=== PATIENT | male | born 1990 | race Caucasian/White ===

== ENCOUNTER 2016-12-30 19:41 | Emergency (ER) | payer OTHER ==
[2016-12-30 19:58] VITALS: O2SAT 98
[2016-12-30] MEDS ORDERED: SUMAtriptan SUCCINATE INJ 6 MG/0.5 ML VIAL SUBCU ONE (20:14)
--- NOTE | 2016-12-30 20:17 | ED.PDOC ---
History of Present Illness - General Chief Complaint: Headache Stated Complaint: headache Time Seen by Provider: 12/30/16 19:59 Source: patient, RN notes reviewed, Vital Signs reviewed Exam Limitations: no limitations - History of Present Illness Initial Comments: Patient comes in with a several day history of right arm numbness. Then today he developed a right sided headache. No dizziness or lightheadedness. + photophobia. No nausea/vomiting. Denies history of migraines. Admits of marijuana use last night. Timing/Duration: constant - for several days Quality: moderate, pressure Head Injury Location: temporal - right, parietal - right Recent Head Trauma: no recent headache/trauma Improving Factors: nothing Worsening Factors: nothing Associated Symptoms: denies symptoms Allergies/Adverse Reactions: Allergies NO KNOWN ALLERGY Allergy (Verified 12/30/16 19:53) Home Medications: Ambulatory Orders Sumatriptan Succinate [Imitrex] 100 mg PO ONCE #6 tab 12/30/16 Review of Systems - Review of Systems Constitutional: States: malaise. Denies: chills, diaphoresis, fever EENTM: States: no symptoms reported. Denies: blurred vision, double vision Respiratory: States: no symptoms reported. Denies: short of breath Cardiology: States: no symptoms reported. Denies: chest pain Gastrointestinal/Abdominal: States: no symptoms reported. Denies: nausea, vomiting Musculoskeletal: States: no symptoms reported Skin: States: no symptoms reported Neurological: States: see HPI, headache, numbness - right arm Past Medical History (General) - Patient Medical History Hx Seizures: No Hx Stroke: No Hx Dementia: No Hx Asthma: Yes Hx of COPD: No Hx Cardiac Disorders: No Hx Congestive Heart Failure: No Hx Pacemaker: No Hx Hypertension: No Hx Thyroid Disease: No Hx Diabetes: No Hx Gastroesophageal Reflux: No Hx Renal Disease: No Hx Cancer: No Hx of HIV: No Hx Hepatitis C: No Hx MRSA: No Surgical History: cholecystectomy - Vaccination History Hx Tetanus, Diphtheria Vaccination: No Hx Influenza Vaccination: No Hx Pneumococcal Vaccination: No Immunizations Up to Date: No - Social History Hx Tobacco Use: Yes Hx Chewing Tobacco Use: No Hx Alcohol Use: No Hx Substance Use: Yes Hx Substance Use Treatment: No Hx Depression: No - Female History Patient : No Family Medical History - Family History Mother Family History: No Known Living Status: Still Living Hx Cardiac Disease: Yes - angina Hx Family Diabetes: Yes Physical Exam - Physical Exam General Appearance: Alert, Comfortable, No apparent distress, Well Developed, Well Groomed, Well Hydrated, Well Nourished Eyes, Ears, Nose, Throat Exam: PERRL/EOMI, normal ENT inspection, pharynx normal Neck: non-tender, full range of motion, supple, normal inspection, trachea midline Respiratory: chest non-tender Extremity: normal range of motion, non-tender, normal inspection Mental Status: alert, oriented x 3 cost estimating engineer Exam: normal hearing, normal speech, PERRL Coordination/Gait: normal gait Motor/Sensory: no motor deficit, no sensory deficit, no pronator drift Skin Exam: warm/dry, normal color Progress - Progress Progress: 12/30/16 20:58 Patient reports BOTELLO is completely resolved after Imitrex. Discussed CT and X-ray results. Needs follow up for EMG of RUE to further evaluate numbness. Will d/c home with Rx for Imitrex - EKG/XRAY/CT XRAY: c-spine - Straightening, o/w nl CT Ordered: Yes - Head: no acute intracranial abnormality CT Interpretation Call Back: No Departure - Departure Clinical Impression: Paresthesia of right arm Migraine Qualifiers: Migraine type: without aura Status migrainosus presence: without status migrainosus Intractability: not intractable Qualifier Code: (G43.009) Migraine without aura, not intractable, without status migrainosus Time of Disposition: 21:00 Disposition: Discharge to Home or Self Care Condition: Good Departure Forms: ED Discharge - Pt. Copy, Patient Portal Self Enrollment Instructions: DI for Migraine, DI for Numbness/tingling Diet: resume usual diet Activity: increase activity as tolerated Referrals: Bryanna Simmons NP [Nurse Practitioner] - 1-2 Weeks (Needs EMG for paresthesia of RUE) Prescriptions: Sumatriptan Succinate [Imitrex] 100 mg PO ONCE #6 tab Home Medications: Ambulatory Orders Sumatriptan Succinate [Imitrex] 100 mg PO ONCE #6 tab 12/30/16
--- NOTE | 2016-12-30 20:39 | CT ---
PROCEDURE: Head HISTORY: R sided headache with numbness R arm Indication: Same as above Comparison: None Technique: CT of the head was done without intravenous contrast was done in the orthogonal planes. This exam was performed according to our departmental dose-optimization program, which includes automated exposure control, adjustment of the mA and/or KV according to the patient's size and/or use of iterative reconstruction technique. FINDINGS: There is no intracranial hemorrhage, midline shift mass effect or acute focal infarct. If clinical concern exists regarding an acute ischemic/vascular pathology being responsible for patient's symptomatology, an MRI of the brain is more sensitive than the current study, in ruling out such a possibility. There is good patel/white matter differentiation. The ventricular system is normal. The mastoid air cells are unremarkable . The paranasal sinuses are unremarkable . There is no visualization of acute fractures involving the calvarium or the skull base. IMPRESSION: There is no acute intracranial abnormality. Electronically signed by: Last Sierra MD 12/30/2016 8:38 PM CDT
--- NOTE | 2016-12-30 20:49 | RAD ---
EXAM DESCRIPTION: XR CERVICAL SPINE 2 - 3 VIEWS CLINICAL HISTORY: Numbness R arm COMPARISON: None FINDINGS: AP, lateral and open-mouth view of the cervical spine were submitted. The prevertebral soft tissues are within normal limits. There is no acute fracture or subluxation. The cervicothoracic junction is identified and well aligned. The lateral masses of C1 and the odontoid are well aligned. Straightening of the cervical spine could be secondary to patient's positioning versus spasm. IMPRESSION: No acute fracture or subluxation. Straightening of the cervical spine could be secondary to patient's positioning versus spasm. Electronically signed by: Renzo Ureña MD 12/30/2016 8:47 PM CDT
[2016-12-30 21:26] VITALS: BP 132/88; TEMP 98.7
== END 2016-12-30 21:12 | disposition home or self-care (01) ==
LOC: ER 19:41
DX: G43.009 Migraine without aura, not intractable, without status migrainosus (principal); R20.9 Unspecified disturbances of skin sensation; J45.909 Unspecified asthma, uncomplicated; Z87.891 Personal history of nicotine dependence
CPT/HCPCS: 70450; 72040; J3030

== ENCOUNTER 2017-06-10 00:23 | Emergency (ER) | payer OTHER ==
[2017-06-10 00:41] VITALS: BP 115/77; TEMP 98.1; O2SAT 97
--- NOTE | 2017-06-10 00:43 | ED.PDOC ---
History of Present Illness - General Chief Complaint: Dental/Mouth Stated Complaint: tooth abcess, wants abx tx Time Seen by Provider: 06/10/17 00:33 Source: patient, RN notes reviewed, Vital Signs reviewed Exam Limitations: no limitations - History of Present Illness Initial Comments: Patient here with c/o a dental abscess. He would like some antibiotics to take before he gets the tooth pulled. Symptoms started 2 days ago. Timing/Duration: constant Severity: moderate Improving Factors: nothing Worsening Factors: eating Associated Symptoms: denies symptoms Allergies/Adverse Reactions: Allergies NO KNOWN ALLERGY Allergy (Verified 06/10/17 00:41) Home Medications: Ambulatory Orders Amoxicillin [Amoxil] 500 mg PO TID #21 cap 06/10/17 Review of Systems - Review of Systems Constitutional: States: no symptoms reported. Denies: chills, fever EENTM: States: mouth pain Respiratory: States: no symptoms reported Cardiology: States: no symptoms reported Gastrointestinal/Abdominal: States: no symptoms reported Musculoskeletal: States: no symptoms reported Skin: States: no symptoms reported Neurological: States: no symptoms reported All other Systems: No Change from Baseline Past Medical History (General) - Patient Medical History Hx Seizures: No Hx Stroke: No Hx Dementia: No Hx Asthma: Yes Hx of COPD: No Hx Cardiac Disorders: No Hx Congestive Heart Failure: No Hx Pacemaker: No Hx Hypertension: No Hx Thyroid Disease: No Hx Diabetes: No Hx Gastroesophageal Reflux: No Hx Renal Disease: No Hx Cancer: No Hx of HIV: No Hx Hepatitis C: No Hx MRSA: No - Vaccination History Hx Tetanus, Diphtheria Vaccination: Yes Hx Influenza Vaccination: Yes Hx Pneumococcal Vaccination: No - Social History Hx Tobacco Use: Yes Hx Chewing Tobacco Use: No Hx Alcohol Use: No Hx Substance Use: Yes Hx Substance Use Treatment: No Hx Depression: No Feels Threatened In Home Enviroment: No Feels Threatened In a Relationship: No Hx Physical Abuse: No Hx Emotional Abuse: No Hx Suspected Abuse: No - Female History Patient : No Family Medical History - Family History Mother Family History: No Known Living Status: Still Living Hx Cardiac Disease: Yes - angina Hx Family Diabetes: Yes Physical Exam - Physical Exam General Appearance: Alert, Comfortable, No apparent distress, Unkempt, Well Developed, Well Hydrated, Well Nourished Ears, Nose, Throat: other - poor dentition with numerous carries. L upper gum is erythematous, swollen and tender. Neck: full range of motion, supple, lymphadenopathy (L) Respiratory: no respiratory distress Extremity: normal range of motion, normal inspection Neurologic: alert, normal mood/affect, oriented x 3 Skin Exam: normal color, warm/dry Comments: Vital Signs 06/10/17 00:35 Temperature 98.1 F Pulse Rate [ 99 H monitor] Respiratory 18 Rate Blood Pressure 115/77 [Left Arm] O2 Sat by Pulse 97 Oximetry Departure - Departure Clinical Impression: Dental caries, Dental abscess Time of Disposition: 00:45 Disposition: Discharge to Home or Self Care Condition: Good Departure Forms: ED Discharge - Pt. Copy, Patient Portal Self Enrollment Instructions: Tooth Abscess, DI for Tooth Decay Diet: resume usual diet Activity: increase activity as tolerated Prescriptions: Amoxicillin [Amoxil] 500 mg PO TID #21 cap Home Medications: Ambulatory Orders Amoxicillin [Amoxil] 500 mg PO TID #21 cap 06/10/17 Additional Instructions: Follow up with dentist this week for definitive care
[2017-06-10] MEDS ORDERED: AMOXICILLIN 500 MG CAP PO ONE (00:44)
== END 2017-06-10 01:02 | disposition home or self-care (01) ==
LOC: ER 00:23
DX: K04.7 Periapical abscess without sinus (principal); J45.909 Unspecified asthma, uncomplicated; K02.9 Dental caries, unspecified; Z87.891 Personal history of nicotine dependence

== ENCOUNTER 2017-11-13 21:44 | Emergency (ER) | payer OTHER ==
[2017-11-13 22:15] VITALS: O2SAT 96
--- NOTE | 2017-11-13 22:29 | ED.PDOC ---
History of Present Illness - General Chief Complaint: Dental/Mouth Stated Complaint: mouth pain Time Seen by Provider: 11/13/17 22:20 Source: patient Exam Limitations: no limitations - History of Present Illness Initial Comments: Wilson Buenrostro 27 y/o male stated that he has multiple decayed teeth and had been having dental pains for the last 3 days.Called up his dentis advised to get antibiotics first. Timing/Duration: other - see hpi Severity: moderate EENT Location: dental Prearrival Treatment: no prearrival treatment Presenting Symptoms: dental pain Improving Factors: nothing Worsening Factors: eating Associated Symptoms: tooth pain Allergies/Adverse Reactions: Allergies NO KNOWN ALLERGY Allergy (Verified 06/10/17 00:41) Home Medications: Ambulatory Orders Amoxicillin [Amoxil] 500 mg PO TID #21 cap 06/10/17 Clindamycin HCl 300 mg PO BID #20 cap 11/13/17 Gabapentin 300 mg PO BID #20 cap 11/13/17 Review of Systems - Review of Systems Constitutional: States: no symptoms reported EENTM: States: see HPI Respiratory: States: no symptoms reported Cardiology: States: no symptoms reported Gastrointestinal/Abdominal: States: no symptoms reported Genitourinary: States: no symptoms reported All other Systems: Reviewed and Negative, No Change from Baseline Past Medical History (General) - Patient Medical History Hx Seizures: No Hx Stroke: No Hx Dementia: No Hx Asthma: No Hx of COPD: No Hx Cardiac Disorders: No Hx Congestive Heart Failure: No Hx Pacemaker: No Hx Hypertension: No Hx Thyroid Disease: No Hx Diabetes: No Hx Gastroesophageal Reflux: No Hx Renal Disease: No Hx Cancer: No Hx of HIV: No Hx Hepatitis C: No Hx MRSA: No Surgical History: cholecystectomy - Vaccination History Hx Tetanus, Diphtheria Vaccination: Yes Hx Influenza Vaccination: Yes Hx Pneumococcal Vaccination: No - Social History Hx Tobacco Use: Yes Hx Chewing Tobacco Use: No Hx Alcohol Use: No Hx Substance Use: Yes Hx Substance Use Treatment: No Hx Depression: No Hx Physical Abuse: No Hx Emotional Abuse: No Hx Suspected Abuse: No - Female History Patient : No Family Medical History - Family History Mother Family History: No Known Living Status: Still Living Hx Cardiac Disease: Yes - angina Hx Family Diabetes: Yes Physical Exam - Physical Exam General Appearance: Alert, Anxious, No apparent distress Eye Exam: bilateral normal Ear Exam: bilateral ear: auricle normal, canal normal, TM normal Nasal Exam: normal inspection Throat Exam: pharynx normal, dental tenderness - multiple decayed teeth upper incisors and molars Neck: non-tender, full range of motion, supple Cardiovascular/Respiratory: regular rate, rhythm, no M/R/G, normal peripheral pulses Abdominal Exam: non-tender Neurologic: alert, oriented x 3 Skin Exam: normal color, warm/dry Progress - Progress Progress: 11/13/17 22:31 Last Vital Signs Temp 97.0 F L 11/13/17 22:01 Pulse 81 11/13/17 22:01 Resp 22 11/13/17 22:01 BP 154/47 11/13/17 22:01 Pulse Ox 96 11/13/17 22:01 Departure - Departure Clinical Impression: Chronic dental pain, Compound dental caries Time of Disposition: 22:34 Disposition: Discharge to Home or Self Care Condition: Fair Departure Forms: ED Discharge - Pt. Copy, Patient Portal Self Enrollment Instructions: DI for Dental Pain, DI for Tooth Decay Diet: other - SOFT DIET ONLY UNTIL BETTER Prescriptions: Clindamycin HCl 300 mg PO BID #20 cap Gabapentin 300 mg PO BID #20 cap Home Medications: Ambulatory Orders Amoxicillin [Amoxil] 500 mg PO TID #21 cap 06/10/17 Clindamycin HCl 300 mg PO BID #20 cap 11/13/17 Gabapentin 300 mg PO BID #20 cap 11/13/17 Additional Instructions: NEED TO CALL DENTIST 11/15/2017
[2017-11-13] MEDS ORDERED: CLINDAMYCIN HCL CAP 150 MG CAP PO ONE (22:31)
[2017-11-13] MEDS ORDERED: CLINDAMYCIN PHOSPHATE 150 MG/ML VIAL IM ONE (22:32)
[2017-11-13] MEDS ORDERED: HYDROcodone 7.5MG/APAP 325MG 1 EA TAB PO ONE (22:33)
[2017-11-13 22:59] VITALS: BP 158/74; TEMP 97.4
== END 2017-11-13 22:59 | disposition home or self-care (01) ==
LOC: ER 21:44
DX: K02.9 Dental caries, unspecified (principal); Z87.891 Personal history of nicotine dependence

== ENCOUNTER 2018-02-04 19:56 | Emergency (ER) | payer OTHER ==
[2018-02-04] MEDS ORDERED: KETOROLAC TROMETHAMINE INJ 30 MG/ML VIAL IV ONE (21:05)
--- NOTE | 2018-02-04 21:05 | ED.PDOC ---
History of Present Illness - General Chief Complaint: Problem Stated Complaint: voiding frequency, nausea, back pain Time Seen by Provider: 02/04/18 20:57 Source: patient Exam Limitations: no limitations Additional Information: C/O LYUDMILA FLANK PAIN WITH FREQUENT URINATION. SX'S X 4 DAYS. - History of Present Illness Timing/Duration: other - 4 DAYS Severity: moderate Improving Factors: nothing Worsening Factors: nothing Associated Symptoms: nausea/vomiting Allergies/Adverse Reactions: Allergies NO KNOWN ALLERGY Allergy (Verified 06/10/17 00:41) Home Medications: Ambulatory Orders Amoxicillin [Amoxil] 500 mg PO TID #21 cap 06/10/17 Clindamycin HCl 300 mg PO BID #20 cap 11/13/17 Gabapentin 300 mg PO BID #20 cap 11/13/17 Cyclobenzaprine HCl [Flexeril] 10 mg PO TID PRN #15 tab 02/04/18 Indomethacin 50 mg PO TID PRN #14 cap 02/04/18 Review of Systems - Review of Systems Constitutional: Denies: chills, fever EENTM: States: no symptoms reported Respiratory: States: no symptoms reported Cardiology: States: no symptoms reported Gastrointestinal/Abdominal: States: abdominal pain. Denies: nausea, vomiting Genitourinary: States: dysuria, frequency. Denies: discharge, hematuria Musculoskeletal: States: back pain. Denies: neck pain Skin: States: no symptoms reported Neurological: States: no symptoms reported Endocrine: States: no symptoms reported Hematologic/Lymphatic: States: no symptoms reported Past Medical History (General) - Patient Medical History Hx Seizures: Yes - not taking medications Hx Stroke: No Hx Dementia: No Hx Asthma: No Hx of COPD: No Hx Cardiac Disorders: Yes - heart murmur Hx Congestive Heart Failure: No Hx Pacemaker: No Hx Hypertension: No Hx Thyroid Disease: No Hx Diabetes: No Hx Gastroesophageal Reflux: No Hx Renal Disease: Yes - hx stones Hx Cancer: No Hx of HIV: No Hx Hepatitis C: No Hx MRSA: Yes MRSA Source:: Wound Surgical History: cholecystectomy, other - Vaccination History Hx Tetanus, Diphtheria Vaccination: Yes Hx Influenza Vaccination: Yes Hx Pneumococcal Vaccination: No - Social History Hx Tobacco Use: Yes Cigarettes Packs Per Day: 2 Hx Chewing Tobacco Use: No Hx Alcohol Use: No Hx Substance Use: Yes Hx Substance Use Treatment: No Hx Depression: No Hx Physical Abuse: No Hx Emotional Abuse: No Hx Suspected Abuse: No - Female History Patient : No Family Medical History - Family History Mother Family History: No Known Living Status: Still Living Hx Cardiac Disease: Yes - angina Hx Family Diabetes: Yes Physical Exam - Physical Exam General Appearance: Alert, No apparent distress Eye Exam: bilateral normal Ears, Nose, Throat: hearing grossly normal, normal ENT inspection Neck: non-tender, full range of motion, supple Respiratory: lungs clear, normal breath sounds Cardiovascular/Chest: regular rate, rhythm, no murmur Gastrointestinal/Abdominal: normal bowel sounds, non tender, soft, no organomegaly Back Exam: normal inspection, no CVA tenderness, no vertebral tenderness Extremity: normal range of motion, non-tender, normal inspection Neurologic: alert, normal mood/affect Skin Exam: normal color, warm/dry Lymphatic: no adenopathy Progress - Progress Progress: 02/04/18 23:01 FEELS BETTER. WANTS TO LEAVE Departure - Departure Clinical Impression: Lumbosacral pain Time of Disposition: 23:03 Disposition: Discharge to Home or Self Care Condition: Good Departure Forms: ED Discharge - Pt. Copy, Patient Portal Self Enrollment Instructions: Low Back Pain Prescriptions: Cyclobenzaprine HCl [Flexeril] 10 mg PO TID PRN #15 tab PRN Reason: Pain Indomethacin 50 mg PO TID PRN #14 cap PRN Reason: Pain Home Medications: Ambulatory Orders Amoxicillin [Amoxil] 500 mg PO TID #21 cap 06/10/17 Clindamycin HCl 300 mg PO BID #20 cap 11/13/17 Gabapentin 300 mg PO BID #20 cap 11/13/17 Cyclobenzaprine HCl [Flexeril] 10 mg PO TID PRN #15 tab 02/04/18 Indomethacin 50 mg PO TID PRN #14 cap 02/04/18
[2018-02-04 22:48] VITALS: TEMP 97.3
[2018-02-04 23:25] VITALS: BP 98/54; O2SAT 18
== END 2018-02-04 23:24 | disposition home or self-care (01) ==
LOC: ER 19:56
DX: M54.5 Low back pain (principal); R11.2 Nausea with vomiting, unspecified; R01.1 Cardiac murmur, unspecified; Z87.442 Personal history of urinary calculi; F17.210 Nicotine dependence, cigarettes, uncomplicated; R56.9 Unspecified convulsions
CPT/HCPCS: 36415; 80048; 81001; 85025; J1885

== ENCOUNTER 2018-02-06 14:44 | Emergency (ER) | payer OTHER ==
[2018-02-06 14:52] VITALS: TEMP 98.5; O2SAT 100
--- NOTE | 2018-02-06 15:12 | ED.PDOC ---
History of Present Illness - General Chief Complaint: GI Problem Stated Complaint: N/V/D, abdominal discomfort, feels hot Time Seen by Provider: 02/06/18 15:04 Source: patient Exam Limitations: no limitations - History of Present Illness Initial Comments: Wilson Buenrostro 27 y/o male stated had N/V/D the last 2 days.Stated ate pizza before getting sick,no ill contact no recent antibiotics,no fever ,no chills. Timing/Duration: other - see hpi Severity: moderate Improving Factors: nothing Worsening Factors: eating Associated Symptoms: other - see hpi Allergies/Adverse Reactions: Allergies NO KNOWN ALLERGY Allergy (Verified 02/06/18 14:54) Home Medications: Ambulatory Orders Gabapentin 300 mg PO BID #20 cap 11/13/17 Cyclobenzaprine HCl [Flexeril] 10 mg PO TID PRN #15 tab 02/04/18 Indomethacin 50 mg PO TID PRN #14 cap 02/04/18 Review of Systems - Review of Systems Constitutional: States: no symptoms reported EENTM: States: no symptoms reported Respiratory: States: no symptoms reported Cardiology: States: no symptoms reported Gastrointestinal/Abdominal: States: see HPI Genitourinary: States: no symptoms reported All other Systems: Reviewed and Negative, No Change from Baseline Past Medical History (General) - Patient Medical History Hx Seizures: Yes - not taking medications Hx Stroke: No Hx Dementia: No Hx Asthma: No Hx of COPD: No Hx Cardiac Disorders: Yes - heart murmur Hx Congestive Heart Failure: No Hx Pacemaker: No Hx Hypertension: No Hx Thyroid Disease: No Hx Diabetes: No Hx Gastroesophageal Reflux: No Hx Renal Disease: Yes - hx stones Hx Cancer: No Hx of HIV: No Hx Hepatitis C: No Hx MRSA: Yes MRSA Source:: Wound Surgical History: cholecystectomy, other - left wrist -orif - Vaccination History Hx Tetanus, Diphtheria Vaccination: Yes Hx Influenza Vaccination: Yes - 2016 Hx Pneumococcal Vaccination: No - 2014 - Social History Hx Tobacco Use: Yes Hx Chewing Tobacco Use: No Hx Alcohol Use: No Hx Substance Use: Yes Hx Substance Use Treatment: No Hx Depression: No Hx Physical Abuse: No Hx Emotional Abuse: No Hx Suspected Abuse: No - Female History Patient : No Family Medical History - Family History Mother Family History: No Known Living Status: Still Living Hx Cardiac Disease: Yes - angina Hx Family Diabetes: Yes Physical Exam - Physical Exam General Appearance: Alert, Comfortable, No apparent distress Eye Exam: bilateral normal Ears, Nose, Throat: hearing grossly normal, normal ENT inspection, normal pharynx Neck: non-tender, full range of motion, supple Respiratory: chest non-tender, lungs clear, normal breath sounds, no respiratory distress Cardiovascular/Chest: normal peripheral pulses, regular rate, rhythm, no murmur Peripheral Pulses: radial,right: 2+, radial,left: 2+ Gastrointestinal/Abdominal: normal bowel sounds, non tender, soft, no organomegaly Back Exam: no CVA tenderness, no vertebral tenderness Extremity: no pedal edema, no calf tenderness Neurologic: alert, oriented x 3 Skin Exam: normal color, warm/dry Progress - Progress Progress: 02/06/18 15:19 Vital Signs - 8 hr 02/06/18 14:51 Temperature 98.5 F Pulse Rate [ 85 Right Radial] Respiratory 20 Rate Blood Pressure 129/86 [Right Arm] O2 Sat by Pulse 100 Oximetry - Results/Orders Results/Orders: 02/06/18 15:13 IV Care:Saline Lock per Protoc QSHIFT URINE DRUG SCREEN, 7 ASSAY Stat CLOSTRIDIUM DIFFICILE AG/TOXIN Urgent URINALYSIS Stat Laboratory Results - last 24 hr 02/06/18 02/06/18 15:27 15:27 WBC 6.4 RBC 4.93 Hgb 14.3 Hct 42.0 MCV 85.2 MCH 28.9 MCHC 33.9 RDW 14.1 Plt Count 298 MPV 7.0 L Absolute Neuts (auto) 2.80 Absolute Lymphs (auto) 2.20 Absolute Monos (auto) 1.10 H Absolute Eos (auto) 0.30 Absolute Basos (auto) 0.00 Neutrophils % 44.0 Lymphocytes % 34.0 Monocytes % 17.3 H Eosinophils % 4.1 Basophils % 0.6 Sodium 136 Potassium 4.0 Chloride 106 Carbon Dioxide 25 Anion Gap 9.0 L BUN 10 Creatinine 0.70 BUN/Creatinine Ratio 14.3 Random Glucose 89 Serum Osmolality 270.5 L Calcium 8.7 Total Bilirubin 0.4 AST 58 H ALT 113 H Alkaline Phosphatase 69 Serum Total Protein 7.5 Albumin 3.8 Globulin 3.7 H Albumin/Globulin Ratio 1.0 L Lipase 47 Departure - Departure Clinical Impression: Nausea & vomiting Qualifiers: Vomiting type: unspecified Vomiting Intractability: unspecified Qualified Code( s): R11.2 - Nausea with vomiting, unspecified Diarrhea Qualifiers: Diarrhea type: unspecified type Qualified Code(s): R19.7 - Diarrhea, unspecified Time of Disposition: 16:35 Disposition: Discharge to Home or Self Care Condition: Good Departure Forms: ED Discharge - Pt. Copy, Patient Portal Self Enrollment Instructions: Gastroenteritis Diet Diet: other - AVOID GREASY,SPICY,DAIRY,Chicken noodle spoup,may have chicken broth Home Medications: Ambulatory Orders Gabapentin 300 mg PO BID #20 cap 11/13/17 Cyclobenzaprine HCl [Flexeril] 10 mg PO TID PRN #15 tab 02/04/18 Indomethacin 50 mg PO TID PRN #14 cap 02/04/18 Additional Instructions: Follow up with primary Md in AM 07 Feb 2018;May take over the counter Imodium - AD as directed on package for diarrhea
[2018-02-06] MEDS ORDERED: DICYCLOMINE HCL INJ 20 MG/2 ML AMP IM ONE (15:13)
[2018-02-06] MEDS ORDERED: PROMETHAZINE HCL INJ 25 MG/ML VIAL IM ONE (15:13)
[2018-02-06] MEDS ORDERED: LACTATED RINGERS 1,000 ML IVS ONE (15:14)
[2018-02-06 17:54] VITALS: BP 124/77
== END 2018-02-06 16:55 | disposition home or self-care (01) ==
LOC: ER 14:44
DX: R11.2 Nausea with vomiting, unspecified (principal); R19.7 Diarrhea, unspecified; R56.9 Unspecified convulsions; R01.1 Cardiac murmur, unspecified; Z87.891 Personal history of nicotine dependence
CPT/HCPCS: 36415; 80053; 83690; 85025; J0500; J2550; J7120

== ENCOUNTER 2018-06-16 17:09 | Emergency (ER) | payer OTHER ==
[2018-06-16 17:23] VITALS: BP 105/70; TEMP 97.9; O2SAT 99
--- NOTE | 2018-06-16 17:41 | RAD ---
EXAM DESCRIPTION: Tibia/Fibula,Right CLINICAL HISTORY: fell of pporch COMPARISON: None FINDINGS: 2 view(s) submitted. No fracture or dislocation is identified. Bone marrow attenuation is unremarkable. No radiopaque foreign body is identified. IMPRESSION: No acute fracture or dislocation. Electronically signed by: Tobin Reddy 06/16/2018 5:39 PM CDT
--- NOTE | 2018-06-16 17:42 | RAD ---
Right ankle three view on 06/16/2018 Clinical indications: Ankle pain after fell off porch COMPARISON: None FINDINGS: The ankle mortise is intact. There are no fractures. Visualized joints are well aligned. No bony abnormality is noted. IMPRESSION: No acute bony abnormality. Electronically signed by: Inderjit Whitley 06/16/2018 5:41 PM CDT
--- NOTE | 2018-06-16 17:49 | ED.PDOC ---
History of Present Illness - General Chief Complaint: Lower Extremity Injury Stated Complaint: R ankle/foot injury Time Seen by Provider: 06/16/18 17:24 Source: patient Exam Limitations: no limitations - History of Present Illness Initial Comments: the patient is 27-year-old male presenting to emergency room after having twisted his ankle while trying to step off a porch. He has pain in the ankle laterally. There is no anterior significant displacement with stress testing ankle. There is no deformity other than generalized swelling on that side of the ankle. There is already some mild bruising. He does have some mild proximal tibia discomfort to palpation as well. He is neurovascularly intact. Capillary refills within normal limits. No other injuries. Timing/Duration: momentarily Severity: moderate Improving Factors: immobilization Worsening Factors: movement Associated Symptoms: denies symptoms Allergies/Adverse Reactions: Allergies NO KNOWN ALLERGY Allergy (Verified 06/16/18 17:37) Home Medications: Ambulatory Orders Gabapentin 300 mg PO BID #20 cap 11/13/17 Cyclobenzaprine HCl [Flexeril] 10 mg PO TID PRN #15 tab 02/04/18 Indomethacin 50 mg PO TID PRN #14 cap 02/04/18 Review of Systems - Review of Systems Constitutional: States: no symptoms reported EENTM: States: no symptoms reported Respiratory: States: no symptoms reported Cardiology: States: no symptoms reported Gastrointestinal/Abdominal: States: no symptoms reported Genitourinary: States: no symptoms reported Musculoskeletal: States: see HPI Skin: States: no symptoms reported Neurological: States: no symptoms reported All other Systems: No Change from Baseline Past Medical History (General) - Patient Medical History Hx Seizures: Yes - not taking medications Hx Stroke: No Hx Dementia: No Hx Asthma: No Hx of COPD: No Hx Cardiac Disorders: Yes - heart murmur Hx Congestive Heart Failure: No Hx Pacemaker: No Hx Hypertension: No Hx Thyroid Disease: No Hx Diabetes: No Hx Gastroesophageal Reflux: No Hx Renal Disease: Yes - hx stones Hx Cancer: No Hx of HIV: No Hx Hepatitis C: No Hx MRSA: Yes MRSA Source:: Wound Surgical History: cholecystectomy, other - Vaccination History Hx Tetanus, Diphtheria Vaccination: Yes Hx Influenza Vaccination: Yes - 2016 Hx Pneumococcal Vaccination: No - 2014 - Social History Hx Tobacco Use: Yes Hx Chewing Tobacco Use: No Hx Alcohol Use: No Hx Substance Use: Yes Hx Substance Use Treatment: No Hx Depression: No Hx Physical Abuse: No Hx Emotional Abuse: No Hx Suspected Abuse: No - Female History Patient : No Family Medical History - Family History Mother Family History: No Known Living Status: Still Living Hx Cardiac Disease: Yes - angina Hx Family Diabetes: Yes Physical Exam - Physical Exam General Appearance: Alert, Comfortable, No apparent distress Eye Exam: bilateral normal Ears, Nose, Throat: hearing grossly normal, normal pharynx Neck: full range of motion Respiratory: no respiratory distress, no accessory muscle use Cardiovascular/Chest: normal peripheral pulses, no edema Peripheral Pulses: dorsalis pedis,right: 2+, dorsalis pedis,left: 2+, posterior tibialis,right: 2+, posterior tibialis,left: 2+ Rectal Exam: deferred Extremity: no calf tenderness, normal capillary refill, swelling, other - see history of present illness 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 He does need to ambulate carefully. He has deferred a walking boot at this time. He should expect to have pain for the next 3 weeks or so. Dpbl-oym-lhmiuec anti- inflammatories such as Advil or Aleve may help. X-rays of the ankle and lower leg show no evidence of any fracture or dislocation at this time. ER warnings were given. Departure - Departure Clinical Impression: Right ankle sprain Qualifiers: Encounter type: initial encounter Involved ligament of ankle: unspecified ligament Qualified Code(s): S93.401A - Sprain of unspecified ligament of right ankle, initial encounter Disposition: Discharge to Home or Self Care Condition: Fair Departure Forms: ED Discharge - Pt. Copy, Patient Portal Self Enrollment Instructions: Ankle Sprain (DC) Diet: regular diet Activity: increase activity as tolerated Home Medications: Ambulatory Orders Gabapentin 300 mg PO BID #20 cap 11/13/17 Cyclobenzaprine HCl [Flexeril] 10 mg PO TID PRN #15 tab 02/04/18 Indomethacin 50 mg PO TID PRN #14 cap 02/04/18 Additional Instructions: the patient's a 27-year-old male presenting to emergency room secondary to a significant right lateral ankle sprain. He does need to ambulate carefully. He has deferred a walking boot at this time. He should expect to have pain for the next 3 weeks or so. Ffop-zvo-rtswhjc anti- inflammatories such as Advil or Aleve may help. X-rays of the ankle and lower leg show no evidence of any fracture or dislocation at this time. ER warnings were given.
[2018-06-16] MEDS ORDERED: ACETAMINOPHEN-CAFF-BUTALBITAL 1 EA TAB PO ONE (17:52)
== END 2018-06-16 17:56 | disposition home or self-care (01) ==
LOC: ER 17:09
DX: S93.401A Sprain of unspecified ligament of right ankle, initial encounter (principal); Z87.891 Personal history of nicotine dependence; X50.9XXA Other and unspecified overexertion or strenuous movements or postures, initial encounter; Y92.89 Other specified places as the place of occurrence of the external cause

== ENCOUNTER 2018-12-27 16:59 | Emergency (ER) | payer OTHER ==
[2018-12-27] MEDS ORDERED: LIDOCAINE HCL 2% (MOUTH-THROAT) 15 ML UD PO ONE (17:00)
[2018-12-27 17:17] VITALS: O2SAT 99
--- NOTE | 2018-12-27 18:06 | ED.PDOC ---
History of Present Illness - General Chief Complaint: Drug or Alcohol Abuse Stated Complaint: Shoved a bag of meth in rectum Time Seen by Provider: 12/27/18 17:03 Source: patient Exam Limitations: no limitations - History of Present Illness Initial Comments: the patient is a 20-year-old male presenting to emergency room secondary to being arrested by the police and in order to hide his methamphetamine he shoved the bag up his rectum. This occurred just prior to arrival. no evidence clinically of any rupture. The patient was given a chance to defecate the back himself but was unable to. Due to this an attempt was made digitally to retrieve the bag. While it could be felt it could not be extracted. due to this, a rectal speculum was used along with long forceps to grab the bag and removed it. The bag appears to be intact containing a small amount of white substance. Timing/Duration: other - just prior to arrival. Severity: mild - asymptomatic Improving Factors: nothing Worsening Factors: nothing Associated Symptoms: denies symptoms Allergies/Adverse Reactions: Allergies NO KNOWN ALLERGY Allergy (Verified 12/27/18 17:06) Home Medications: Ambulatory Orders Divalproex Sodium [Depakote Tab] 250 mg PO BID 12/27/18 Review of Systems - Review of Systems Constitutional: States: no symptoms reported EENTM: States: no symptoms reported Respiratory: States: no symptoms reported Cardiology: States: no symptoms reported Gastrointestinal/Abdominal: States: no symptoms reported Genitourinary: States: no symptoms reported Musculoskeletal: States: no symptoms reported Skin: States: see HPI - numerous tattoos Neurological: States: anxiety Endocrine: States: no symptoms reported All other Systems: No Change from Baseline Past Medical History (General) - Patient Medical History Hx Seizures: Yes Hx Stroke: No Hx Dementia: No Hx Asthma: No Hx of COPD: No Hx Cardiac Disorders: Yes - heart murmur Hx Congestive Heart Failure: No Hx Pacemaker: No Hx Hypertension: No Hx Thyroid Disease: No Hx Diabetes: Yes Hx Gastroesophageal Reflux: No Hx Renal Disease: Yes - hx stones Hx Cancer: No Hx of HIV: No Hx Hepatitis C: No Hx MRSA: Yes MRSA Source:: Wound Surgical History: cholecystectomy, other - Vaccination History Hx Tetanus, Diphtheria Vaccination: Yes Hx Influenza Vaccination: Yes - 2016 Hx Pneumococcal Vaccination: No - 2014 - Social History Hx Tobacco Use: Yes Hx Chewing Tobacco Use: No Hx Alcohol Use: No Hx Substance Use: Yes - Meth, marijuana Hx Substance Use Treatment: No Hx Depression: No Hx Physical Abuse: No Hx Emotional Abuse: No Hx Suspected Abuse: No - Female History Patient : No Family Medical History - Family History Mother Family History: No Known Living Status: Still Living Hx Cardiac Disease: Yes - angina Hx Family Diabetes: Yes Physical Exam - Physical Exam General Appearance: Alert, Anxious, No apparent distress Eye Exam: bilateral normal Ears, Nose, Throat: hearing grossly normal, normal ENT inspection - very poor dentition Neck: full range of motion, supple Respiratory: no respiratory distress, no accessory muscle use Cardiovascular/Chest: no edema, other - regular rate Peripheral Pulses: radial,right: 2+, radial,left: 2+ Gastrointestinal/Abdominal: non tender, soft Rectal Exam: other - rectal exam shows a few old thrombosed hemorrhoids. 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 No clinical evidence of bag rupture. Substanc is likely methamphetamine but I'm not entirely sure. He is not tachycardic diaphoretic or markedly hypertensive. He reports that he placed only one bag up there. the patient has been monitored for an additional hour without any significant change in clinical status. He is otherwise asymptomatic at this time. He will be released to police custody. 12/27/18 18:10 Departure - Departure Clinical Impression: Substance abuse Foreign body anus/rectum Qualifiers: Encounter type: initial encounter Qualified Code(s): T18.5XXA - Foreign body in anus and rectum, initial encounter Disposition: Discharge to Home or Self Care Condition: Fair Departure Forms: ED Discharge - Pt. Copy, Patient Portal Self Enrollment Diet: regular diet Activity: increase activity as tolerated Home Medications: Ambulatory Orders Divalproex Sodium [Depakote Tab] 250 mg PO BID 12/27/18 Additional Instructions: the patient's 28-year-old male brought in police custody after having shoved a baggy of drugs up his rectum in order to hide it from the police. No clinical evidence of bag rupture. Substanc is likely methamphetamine but I'm not entirely sure. He is not tachycardic diaphoretic or markedly hypertensive. He reports that he placed only one bag up there. the patient has been monitored for an additional hour without any significant change in clinical status. He is otherwise asymptomatic at this time. He will be released to police custody.
[2018-12-27] MEDS ORDERED: DIVALPROEX SODIUM 250 MG TAB PO ONE (18:36)
[2018-12-27 18:40] VITALS: BP 142/88; TEMP 96
== END 2018-12-27 18:42 | disposition home or self-care (01) ==
LOC: ER 16:59
DX: T18.5XXA Foreign body in anus and rectum, initial encounter (principal); F19.10 Other psychoactive substance abuse, uncomplicated; K64.5 Perianal venous thrombosis; R56.9 Unspecified convulsions; R01.1 Cardiac murmur, unspecified; E11.9 Type 2 diabetes mellitus without complications; Z79.899 Other long term (current) drug therapy; Z87.891 Personal history of nicotine dependence

== ENCOUNTER 2020-02-16 | Emergency (ER) | payer OTHER | END 2020-02-16 21:50 | disposition left against medical advice (07) ==

== ENCOUNTER 2020-05-21 17:49 | Emergency (ER) | payer OTHER ==
--- NOTE | 2020-05-21 17:54 | ED.PDOC ---
History of Present Illness - General Time Seen by Provider: 05/21/20 17:50 Source: patient - History of Present Illness Initial Comments: 29 yo male with PMH of meth abuse, marijuana abuse, seizure disorder, dental caries who presents with cc of dental pain. Onset 1 week ago with gradual worsening, located to maxillary front teeth and canine teeth, constant, "like someone trying to rip them out", 05/06 severity, worse with eating/chewing, tried ibuprofen 400 mg 4 hours ago with little relief. He reports history of severe teeth decay and states he is scheduled to have his teeth removed on 05/27 in [place]. He does report some scant puslike drainage from the lateral incisors. He states that the pain is beginning to radiate up his jaw into both of his ears. Denies any fevers, chills, sore throat, chest pain, dyspnea, abdominal pain, other systemic symptoms. Does report chronic dry cough. Does admit to illicit substance abuse with smoking marijuana. Allergies/Adverse Reactions: Allergies NO KNOWN ALLERGY Allergy (Verified 12/31/19 16:52) Home Medications: Ambulatory Orders Divalproex Sodium [Depakote Tab] 250 mg PO BID 12/27/18 Albuterol Inhaler [Ventolin Hfa Inhaler] 2 - 4 puff INH Q4H PRN #1 inh 12/31/19 Benzonatate Perles [Tessalon Perles] 200 mg PO Q6H PRN #20 cap 12/31/19 Ondansetron Odt [Zofran ODT] 4 - 8 mg PO Q6HR PRN #12 tab 12/31/19 Amoxicillin & Pot Clavulanate [Augmentin Tab] 875 mg PO BID 7 Days #14 tab 05/21/20 Tramadol HCl 50 mg PO Q6H PRN 7 Days #10 tab 05/21/20 Review of Systems - Review of Systems Review of Systems: 05/21/20 18:06 as per HPI All other Systems: Reviewed and Negative Past Medical History (General) - Patient Medical History Hx Seizures: Yes Hx Stroke: No Hx Dementia: No Hx Asthma: No Hx of COPD: No Hx Cardiac Disorders: Yes - Irregular HR Hx Congestive Heart Failure: No Hx Pacemaker: No Hx Hypertension: No Hx Thyroid Disease: No Hx Diabetes: No Hx Gastroesophageal Reflux: No Hx Renal Disease: Yes - hx stones Hx Cancer: No Hx of HIV: No Hx Hepatitis C: No Hx MRSA: Yes MRSA Source:: Wound - Vaccination History Hx Tetanus, Diphtheria Vaccination: No Hx Influenza Vaccination: Yes Hx Pneumococcal Vaccination: No - Social History Hx Tobacco Use: Yes Hx Chewing Tobacco Use: No Hx Alcohol Use: No Hx Substance Use: Yes - Marijuana Hx Substance Use Treatment: No Hx Depression: No Hx Physical Abuse: No Hx Emotional Abuse: No Hx Suspected Abuse: No - Female History Patient : No Family Medical History - Family History Mother Family History: No Known Living Status: Still Living Hx Cardiac Disease: Yes - angina Hx Family Diabetes: Yes Physical Exam - Physical Exam General Appearance: Alert, Comfortable, No apparent distress Eye Exam: bilateral normal Ears, Nose, Throat: other - Missing many teeth. To the maxillary gumline there is severe teeth decay involving bilateral canines, lateral incisors, incisors. There is some redness and mild swelling to the maxillary gumline without evidence of focal abscess or drainage. Neck: non-tender, full range of motion, supple, normal inspection Respiratory: lungs clear, normal breath sounds, no respiratory distress, no accessory muscle use Cardiovascular/Chest: normal peripheral pulses, regular rate, rhythm, no edema, no JVD, no murmur Peripheral Pulses: radial,right: 2+, radial,left: 2+ Gastrointestinal/Abdominal: non tender, soft Extremity: normal range of motion, non-tender, normal inspection Neurologic: no motor/sensory deficits, alert, oriented x 3 Skin Exam: normal color Progress - Progress Progress: 05/21/20 18:07 Acute dental pain -Due to severe dental caries, tooth hypersensitivity. Suspect also possibly maxillary tooth abscess given reported drainage. Discussed with patient that he will need to quit smoking and follow-up with the dentist for definitive treatment with dental extraction of affected teeth. Discussed for now, we will give him tramadol and Augmentin in the ED and sent home with prescriptions for the same with the understanding of the above. -Discharged home in good condition, return warnings discussed Sridhar Mercedes MD Billing #[id number] Departure - Departure Clinical Impression: Dentalgia, Compound dental caries, Drug abuse, Dental abscess Time of Disposition: 18:10 Disposition: Discharge to Home or Self Care Condition: Good Instructions: Dental Pain (DC) Diet: other - Soft mechanical diet Activity: increase activity as tolerated Prescriptions: Amoxicillin & Pot Clavulanate [Augmentin Tab] 875 mg PO BID 7 Days #14 tab Tramadol HCl 50 mg PO Q6H PRN 7 Days #10 tab PRN Reason: Pain Home Medications: Ambulatory Orders Divalproex Sodium [Depakote Tab] 250 mg PO BID 12/27/18 Albuterol Inhaler [Ventolin Hfa Inhaler] 2 - 4 puff INH Q4H PRN #1 inh 12/31/19 Benzonatate Perles [Tessalon Perles] 200 mg PO Q6H PRN #20 cap 12/31/19 Ondansetron Odt [Zofran ODT] 4 - 8 mg PO Q6HR PRN #12 tab 12/31/19 Amoxicillin & Pot Clavulanate [Augmentin Tab] 875 mg PO BID 7 Days #14 tab 05/21/20 Tramadol HCl 50 mg PO Q6H PRN 7 Days #10 tab 05/21/20 Additional Instructions: I strongly advised that you quit smoking and using illicit substances does not want any worsening your dental decay and acute pain as well as put you at risk for heart disease, cancer, chronic lung disease, fatal cardiac arrhythmias, etc. Take antibiotics as directed and finish the full course even if well. Continue to use pzlb-ydj-qnwjrty medications for pain control such as topical Orajel to the affected teeth, Tylenol 650 mg every 6 hours as needed, ibuprofen 600 mg every 6 hours as needed, etc. You may take the tramadol as directed for breakthrough pain. Do not drive or operate heavy machinery while taking this medication as it may make you drowsy. You will need to follow-up with your dentist as scheduled next week for definitive treatment of dental pain with extraction of the affected teeth.
[2020-05-21] MEDS: traMADol HCL 50 MG TAB PO ONE (18:09)
[2020-05-21] MEDS: AMOXICILLIN & POT CLAVULANATE 875 MG TAB PO ONE (18:09)
[2020-05-21 18:19] VITALS: TEMP 98.9; O2SAT 97
[2020-05-21 18:20] VITALS: BP 147/92
== END 2020-05-21 18:23 | disposition home or self-care (01) ==
LOC: ER 17:49
DX: K04.7 Periapical abscess without sinus (principal); K02.9 Dental caries, unspecified; K00.0 Anodontia; F12.90 Cannabis use, unspecified, uncomplicated; R05 Cough; R56.9 Unspecified convulsions; F17.200 Nicotine dependence, unspecified, uncomplicated; Z79.899 Other long term (current) drug therapy

== ENCOUNTER 2020-09-15 16:38 | Emergency (ER) | payer OTHER ==
[2020-09-15] MEDS ORDERED: DIVALPROEX SODIUM ER 250 MG TAB PO ONE (17:14)
--- NOTE | 2020-09-15 17:41 | RAD ---
EXAM DESCRIPTION: Wrist,Right 3 Views CLINICAL HISTORY: 30 years Male pain after seizure COMPARISON: None TECHNIQUE: AP, lateral and oblique views of the right wrist are obtained. FINDINGS: OSSEOUS: There is no evidence of acute fracture or osteolytic/osteoblastic lesions. The joint spaces are preserved. No evidence of subluxation or dislocation. There is no evidence of degenerative osteophytosis or sclerosis. There is no evidence of marginal erosive changes to suggest an inflammatory arthritis. SOFT TISSUE: There is no significant soft tissue swelling or mass. No evidence of significant soft tissue calcifications. No radiopaque foreign bodies. IMPRESSION: No acute osseous abnormalities. Remainder of findings as described above. Electronically signed by: Yola Morales MD 09/15/2020 5:40 PM [employer]
--- NOTE | 2020-09-15 18:03 | ED.PDOC ---
History of Present Illness - General Chief Complaint: Neuro Symptoms/Deficits Stated Complaint: seizure; out of med Time Seen by Provider: 09/15/20 16:48 Source: patient Exam Limitations: no limitations - History of Present Illness Initial Comments: The patient is a 30-year-old male with epilepsy. The patient apparently had a seizure in which he fell and hit his head and injured his right wrist. This was witnessed. He is alert and oriented currently. There is no palpable or visible deformity. No acute neurological changes. The patient apparently ran out of his Depakote. He is not on a blood thinner. He is neurovascularly preserved. Timing/Duration: momentarily Severity: moderate Improving Factors: immobilization Worsening Factors: movement Associated Symptoms: denies symptoms Allergies/Adverse Reactions: Allergies NO KNOWN ALLERGY Allergy (Verified 12/31/19 16:52) Home Medications: Ambulatory Orders Divalproex Sodium [Depakote Tab] 250 mg PO BID 12/27/18 Divalproex Sodium ER [Depakote ER] 1 tablet PO BID #60 tab 09/15/20 Review of Systems - Review of Systems Constitutional: States: malaise EENTM: States: no symptoms reported Respiratory: States: no symptoms reported Cardiology: States: no symptoms reported Gastrointestinal/Abdominal: States: no symptoms reported Genitourinary: States: no symptoms reported Musculoskeletal: States: see HPI Skin: States: no symptoms reported Neurological: States: see HPI Endocrine: States: no symptoms reported All other Systems: No Change from Baseline Past Medical History (General) - Patient Medical History Hx Seizures: Yes Hx Stroke: No Hx Dementia: No Hx Asthma: No Hx of COPD: No Hx Cardiac Disorders: Yes - Irregular HR Hx Congestive Heart Failure: No Hx Pacemaker: No Hx Hypertension: No Hx Thyroid Disease: No Hx Diabetes: No Hx Gastroesophageal Reflux: No Hx Renal Disease: Yes - hx stones Hx Cancer: No Hx of HIV: No Hx Hepatitis C: No Hx MRSA: Yes MRSA Source:: Wound - Vaccination History Hx Tetanus, Diphtheria Vaccination: No Hx Influenza Vaccination: Yes Hx Pneumococcal Vaccination: No - Social History Hx Tobacco Use: Yes Hx Chewing Tobacco Use: No Hx Alcohol Use: No Hx Substance Use: Yes - Marijuana Hx Substance Use Treatment: No Hx Depression: No Hx Physical Abuse: No Hx Emotional Abuse: No Hx Suspected Abuse: No - Female History Patient : No Family Medical History - Family History Mother Family History: No Known Living Status: Still Living Hx Cardiac Disease: Yes - angina Hx Family Diabetes: Yes Physical Exam - Physical Exam General Appearance: Alert, No apparent distress Eye Exam: bilateral normal Ears, Nose, Throat: hearing grossly normal, normal ENT inspection, normal pharynx Neck: non-tender, full range of motion, supple Respiratory: no respiratory distress, no accessory muscle use Cardiovascular/Chest: normal peripheral pulses, no edema, other - Regular rate Peripheral Pulses: radial,right: 2+, radial,left: 2+ Gastrointestinal/Abdominal: non tender, soft Rectal Exam: deferred Back Exam: no CVA tenderness, no vertebral tenderness Extremity: normal range of motion, no calf tenderness, normal capillary refill, other - Patient does report some mild discomfort in his right wrist with movement. No crepitus. No deformity. 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 X-ray of the wrist is negative for any acute pathology. He simply needs to do range of motion exercises for this and take some Motrin. He can wrap it with an Aman wrap if he wishes. I will go ahead and write him for a couple of weeks of his Depakote. He needs to follow-up with his primary care doctor for more extended prescription of this. No focal neurological changes. ER warnings are given. renetta alas [phone] - Results/Orders Results/Orders: X-ray of the right wrist shows no evidence of any fracture or dislocation. Departure - Departure Clinical Impression: Right wrist sprain Qualifiers: Encounter type: initial encounter Qualified Code(s): S63.501A - Unspecified sprain of right wrist, initial encounter Epilepsy Qualifiers: Epilepsy type: unspecified Intractability: intractable Status epilepticus: without status epilepticus Qualified Code(s): G40.919 - Epilepsy, unspecified, intractable, without status epilepticus Disposition: Discharge to Home or Self Care Condition: Fair Departure Forms: ED Discharge - Pt. Copy, Patient Portal Self Enrollment Instructions: Wrist Sprain (DC) Diet: regular diet Activity: increase activity as tolerated Referrals: Bryanna Simmons NP [Primary Care Provider] - 1-2 Weeks Prescriptions: Divalproex Sodium ER [Depakote ER] 1 tablet PO BID #60 tab Home Medications: Ambulatory Orders Divalproex Sodium [Depakote Tab] 250 mg PO BID 12/27/18 Divalproex Sodium ER [Depakote ER] 1 tablet PO BID #60 tab 09/15/20 Additional Instructions: The patient is a 30-year-old male presented to emergency room secondary to mild right wrist sprain that he sustained due to a seizure activity from running out of his Depakote. X-ray of the wrist is negative for any acute pathology. He simply needs to do range of motion exercises for this and take some Motrin. He can wrap it with an Aman wrap if he wishes. I will go ahead and write him for a couple of weeks of his Depakote. He needs to follow-up with his primary care doctor for more extended prescription of this. No focal neurological changes. ER warnings are given.
[2020-09-15 18:17] VITALS: BP 141/89; TEMP 98.5; O2SAT 98
== END 2020-09-15 18:17 | disposition home or self-care (01) ==
LOC: ER 16:38
DX: G40.909 Epilepsy, unspecified, not intractable, without status epilepticus (principal); S63.501A Unspecified sprain of right wrist, initial encounter; Z79.899 Other long term (current) drug therapy; Z91.14 Patient's other noncompliance with medication regimen; Z87.891 Personal history of nicotine dependence; W18.30XA Fall on same level, unspecified, initial encounter; Y92.9 Unspecified place or not applicable

== ENCOUNTER 2020-09-16 20:45 | Emergency (ER) | payer OTHER ==
[2020-09-16] MEDS ORDERED: SODIUM CHLORIDE 0.9% (FLUSH) 10 ML SYG IV PRN (20:46)
[2020-09-16] MEDS ORDERED: SODIUM CHLORIDE 0.9% 1000ML 1,000 ML IVS ONE (20:57)
--- NOTE | 2020-09-16 21:02 | ED.PDOC ---
History of Present Illness - General Time Seen by Provider: 09/16/20 20:46 Source: patient, EMS - History of Present Illness Initial Comments: Patient seen upon ED arrival at 2047. 30-year-old male with past medical history of seizure disorder, marijuana abuse, meth abuse who is brought in by EMS from home for chief complaint of seizures. EMS reports that the family stated that the patient has had 3 seizures today, 2 of which were in the last 1 hour. The seizures were described as lasting around 1 minute, one of the more recent seizures was a generalized tonic-clonic seizure and the other was of the absence variety. The patient is awake and alert and conversive upon arrival but he states he is unable to recall the seizure events. He reports he has had seizures since he was a kid. Reportedly he was seen yesterday in the ED for seizures and was prescribed Depakote 250 mg twice daily. He reports he took his first dose this morning. Patient complains additionally that he has been sick for the past 1 week with frequent cough productive for mucus and occasionally blood-streaked sputum. He additionally reports intermittent subjective fevers and chills, headaches, body aches. Reports also decreased appetite and nausea with a few episodes of nonbloody nonbilious emesis today. Denies any sore throat, abdominal pain, diarrhea. He has not recently been tested for COVID-19. He does not have a regular doctor or a neurologist currently. It has been a while since he has been on seizure medications. Reports he was previously taking BuSpar. He does admit to smoking marijuana and meth frequently. Last marijuana use was today and last meth use was 3 days ago per patient. Denies any IV drug abuse. Allergies/Adverse Reactions: Allergies NO KNOWN ALLERGY Allergy (Verified 09/16/20 21:03) Home Medications: Ambulatory Orders Divalproex Sodium [Depakote Tab] 250 mg PO BID 09/16/20 Review of Systems - Review of Systems Review of Systems: 09/16/20 21:02 as per HPI All other Systems: Reviewed and Negative Past Medical History (General) - Patient Medical History Hx Seizures: Yes Hx Stroke: No Hx Dementia: No Hx Asthma: No Hx of COPD: No Hx Cardiac Disorders: Yes - Irregular HR Hx Congestive Heart Failure: No Hx Pacemaker: No Hx Hypertension: No Hx Thyroid Disease: No Hx Diabetes: No Hx Gastroesophageal Reflux: No Hx Renal Disease: Yes - hx stones Hx Cancer: No Hx of HIV: No Hx Hepatitis C: No Hx MRSA: Yes MRSA Source:: Wound - Vaccination History Hx Tetanus, Diphtheria Vaccination: No Hx Influenza Vaccination: Yes Hx Pneumococcal Vaccination: No - Social History Hx Tobacco Use: Yes Hx Chewing Tobacco Use: No Hx Alcohol Use: No Hx Substance Use: Yes - Marijuana Hx Substance Use Treatment: No Hx Depression: No Hx Physical Abuse: No Hx Emotional Abuse: No Hx Suspected Abuse: No - Female History Patient : No Family Medical History - Family History Mother Family History: No Known Living Status: Still Living Hx Cardiac Disease: Yes - angina Hx Family Diabetes: Yes Physical Exam - Physical Exam General Appearance: Alert, Comfortable, No apparent distress, Other - appears tired Eye Exam: bilateral normal Ears, Nose, Throat: hearing grossly normal, normal ENT inspection, pharyngeal erythema Neck: non-tender, full range of motion, supple, normal inspection Respiratory: chest non-tender, lungs clear, normal breath sounds, no respiratory distress, no accessory muscle use Cardiovascular/Chest: normal peripheral pulses, regular rate, rhythm, no edema, no gallop, no JVD, no murmur Peripheral Pulses: radial,right: 2+, radial,left: 2+ Gastrointestinal/Abdominal: non tender, soft, no organomegaly Back Exam: normal inspection, no CVA tenderness, no vertebral tenderness Extremity: normal range of motion, non-tender, normal inspection, no pedal e concetta, no calf tenderness, normal capillary refill Neurologic: aircraft mechanic structures II-XII nml as tested, no motor/sensory deficits, alert, normal mood/affect, oriented x 3 Skin Exam: normal color, warm/dry Progress - Progress Progress: 09/16/20 21:03 Seizure-like activity -Witnessed by family but not by EMS or ED staff yet. Patient has had GCS 15 since EMS arrival at home without any further seizure activity. -Consider-primary seizure disorder, drug abuse, acute illness, COVID-19, influenza, pneumonia, gastroenteritis, colitis, pancreatitis, rhabdomyolysis, other infections, electrolyte derangement, other -Patient with normal stable vitals upon arrival. EMS did report D stick of 66 in route, will recheck. Patient has no reported history of diabetes and takes no antiglycemic drugs. -Obtain stat seizure work-up, drug panel, rapid Covid and flu testing, rapid strep, UA, Depakote level -Place peripheral IV, 1 L normal saline bolus, seizure precautions 09/16/20 23:43 -Patient has remained stable in the ED, vitals normal, no recurrent seizure-like activity noted. Lab work is largely unremarkable. His Depakote level is in the subtherapeutic range as expected since he was just restarted this morning. Rapid strep, COVID-19, and flu testing are negative -Spoke with the patient's [id number] who is at the bedside who witnessed seizures earlier. She states he had 2 seizures earlier this afternoon, the longest of which was about 4 minutes long. Generalized tonic-clonic. She r eports that he has previously been on Depakote but ran out of his medication in the past 1 to 2 months and has had increased seizure activity. She reports they are usually able to stop the seizures at home by pressing on a certain spot on his shoulders. This seems atypical and suggestive of likely nonepileptiform seizures. Although these may be mixed with true seizures. It is difficult to say as patient has not had any seizure-like activity in the ED for staff to witness. -Discussed all the findings with the patient and his [id number]. I suspect that his increased seizure frequency is likely multifactorial in nature from drug abuse, medication noncompliance, and acute illness with viral upper respiratory symptoms and reported fevers at home. I strongly advised cessation of drug usage and encouraged the patient to seek outpatient rehab. Advised to continue the home Depakote and follow-up closely with the patient's primary care physician. [id number] states that they are going to see Dr. Martinez next week. -Discharge home in good condition, return warnings discussed at length. Sridhar Mercedes MD Billing #[id number] 09/16/20 20:46 IV Care:Saline Lock per [employer] QSHIFT Telemetry Q4H URINE DRUG SCREEN, 7 ASSAY Stat Sodium Chloride 0.9% (Flush) [Saline Flush Syringe] 10 ml IV PRN PRN 09/16/20 20:58 URINALYSIS Stat 09/16/20 21:00 EKG STAT 09/16/20 21:04 STREP A SCREEN CULTURE Stat 09/16/20 23:42 Chest,1 View [RAD] Stat Laboratory Results - last 24 hr 09/16/20 09/16/20 09/16/20 21:03 21:03 21:03 WBC 8.3 RBC 5.18 Hgb 15.5 Hct 45.2 MCV 87.3 MCH 30.0 MCHC 34.3 RDW 14.1 Plt Count 343 MPV 6.6 L Absolute Neuts (auto) 3.90 Absolute Lymphs (auto) 3.00 Absolute Monos (auto) 0.90 H Absolute Eos (auto) 0.40 Absolute Basos (auto) 0.10 Neutrophils % 46.8 Lymphocytes % 36.5 Monocytes % 11.3 H Eosinophils % 4.3 Basophils % 1.1 Sodium 138 Potassium 3.9 Chloride 102 Carbon Dioxide 26 Anion Gap 13.9 BUN 7 Creatinine 0.77 BUN/Creatinine Ratio 9.1 L Random Glucose 79 Serum Osmolality 272.6 L Lactic Acid Calcium 9.1 Magnesium Total Bilirubin 0.3 AST 44 H ALT 81 H Alkaline Phosphatase 50 Creatine Kinase Troponin I Serum Total Protein 7.4 Albumin 3.7 Globulin 3.7 H Albumin/Globulin Ratio 1.0 L TSH Valproic Acid Ethyl Alcohol < 5.10 Group A Strep Rapid 09/16/20 09/16/20 09/16/20 21:03 21:03 21:03 WBC RBC Hgb Hct MCV MCH MCHC RDW Plt Count MPV Absolute Neuts (auto) Absolute Lymphs (auto) Absolute Monos (auto) Absolute Eos (auto) Absolute Basos (auto) Neutrophils % Lymphocytes % Monocytes % Eosinophils % Basophils % Sodium Potassium Chloride Carbon Dioxide Anion Gap BUN Creatinine BUN/Creatinine Ratio Random Glucose Serum Osmolality Lactic Acid 1.4 Calcium Magnesium Total Bilirubin AST ALT Alkaline Phosphatase Creatine Kinase 146 Troponin I < 0.02 Serum Total Protein Albumin Globulin Albumin/Globulin Ratio TSH Valproic Acid Ethyl Alcohol Group A Strep Rapid 09/16/20 09/16/20 09/16/20 21:03 21:03 21:04 WBC RBC Hgb Hct MCV MCH MCHC RDW Plt Count MPV Absolute Neuts (auto) Absolute Lymphs (auto) Absolute Monos (auto) Absolute Eos (auto) Absolute Basos (auto) Neutrophils % Lymphocytes % Monocytes % Eosinophils % Basophils % Sodium Potassium Chloride Carbon Dioxide Anion Gap BUN Creatinine BUN/Creatinine Ratio Random Glucose Serum Osmolality Lactic Acid Calcium Magnesium 2.0 Total Bilirubin AST ALT Alkaline Phosphatase Creatine Kinase Troponin I Serum Total Protein Albumin Globulin Albumin/Globulin Ratio TSH 1.22 Valproic Acid 28.7 L Ethyl Alcohol Group A Strep Rapid Negative - EKG/XRAY/CT EKG: Sinus - Normal sinus rhythm, heart rate 75, no ST elevations noted, Q waves noted in anteroseptal leads indicative for possible old infarct, axis normal, intervals normal, compared to 02/17/2015 EKG appears largely unchanged XRAY: chest - No acute processes per my read Departure - Departure Clinical Impression: Substance abuse, Seizure disorder, Viral upper respiratory illness Time of Disposition: 23:49 Disposition: Discharge to Home or Self Care Condition: Fair Departure Forms: ED Discharge - Pt. Copy, Patient Portal Self Enrollment Instructions: Viral Upper Respiratory Infection, Adult (DC), Seizures, Adult (DC), Drug Abuse and Drug Addiction (DC) Diet: resume usual diet Activity: increase activity as tolerated, other - no unsupervised swimming. No driving motorized vehicles until cleared by MD. Referrals: Bryanna Simmons NP [Primary Care Provider] - 1-2 Weeks Home Medications: Ambulatory Orders Divalproex Sodium [Depakote Tab] 250 mg PO BID 09/16/20 Additional Instructions: Remain well-hydrated and gradually advance her diet and activity level as tolerated. I advised no swimming or operating motorized vehicles or heavy machinery until you are cleared by your physician. I also strongly advised that you quit using illicit substances like marijuana and meth. These are extremely harmful to your health and also greatly increase the risk of your seizures. Return the ED if you develop any concerning symptoms such as return of seizures or prolonged seizures, worsening chest pain or shortness of breath, etc. Follow-up with your primary care doctor is recommended in the next 5 to 7 days for repeat evaluation or sooner as needed. You will also need to follow-up closely with your seizure doctor as well. Continue taking your home seizure medication as prescribed.
--- NOTE | 2020-09-16 23:57 | RAD ---
EXAM DESCRIPTION: Chest,1 View 09/16/2020 11:55 PM PAIN MEDICINE PHYSICIAN CLINICAL HISTORY: 30 years, Male, cough, fevers COMPARISON: 12/31/2019. FINDINGS: Single view of the chest was obtained portable. Prior films were compared. External EKG leads within the [id number] limits diagnosis. The cardiomediastinal silhouette demonstrate to be unremarkable. The heart is not enlarged. The thoracic aorta is unremarkable. Costophrenic angles are sharp. No areas of consolidation or masses are seen. The rest of the soft tissue and bony structures demonstrate to be unremarkable. IMPRESSION: NO ACUTE CARDIOPULMONARY DISEASE SEEN. Electronically signed by: Tien Garcia MD 09/16/2020 11:55 PM PAIN MEDICINE PHYSICIAN
[2020-09-17 00:13] VITALS: BP 109/76; TEMP 97.5; O2SAT 99
== END 2020-09-17 00:13 | disposition home or self-care (01) ==
LOC: ER 20:45
DX: G40.909 Epilepsy, unspecified, not intractable, without status epilepticus (principal); B34.9 Viral infection, unspecified; F12.10 Cannabis abuse, uncomplicated; F15.10 Other stimulant abuse, uncomplicated; Z91.14 Patient's other noncompliance with medication regimen; Z79.899 Other long term (current) drug therapy; Z20.828 Contact with and (suspected) exposure to other viral communicable diseases; Z87.891 Personal history of nicotine dependence
CPT/HCPCS: 36415; 71045; 80053; 80164; 80307; 80320; 81001; 82550; 83605; 83735; 84443; 84484; 85025; 87070; 87502; 87635; 87880; 93005; J7030

== ENCOUNTER 2020-11-16 13:00 | Emergency (ER) | payer OTHER ==
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
[2020-11-16 14:19] VITALS: BP 121/77; TEMP 98.6; O2SAT 99
== END 2020-11-16 14:10 | disposition home or self-care (01) ==
LOC: ER 13:00
DX: S53.402A Unspecified sprain of left elbow, initial encounter (principal); S40.011A Contusion of right shoulder, initial encounter; R56.9 Unspecified convulsions; F17.200 Nicotine dependence, unspecified, uncomplicated; V18.0XXA Pedal cycle driver injured in noncollision transport accident in nontraffic accident, initial encounter; Y92.009 Unspecified place in unspecified non-institutional (private) residence as the place of occurrence of the external cause; Z79.899 Other long term (current) drug therapy